=== PATIENT | female | born 1955 | race Caucasian/White ===

== ENCOUNTER 2019-03-13 12:00 | Observation (INO) | payer OTHER ==
[2019-03-13] MEDS ORDERED: SODIUM CHLORIDE 0.9% 500 ML INFUS.BAG IV ONE (12:35)
[2019-03-13] MEDS ORDERED: ONDANSETRON 4 MG/2 ML VIAL IVPUSH ONE ×2 (12:35→13:45)
[2019-03-13] MEDS ORDERED: FAMOTIDINE 20 MG/50 ML IVPB 20 MG/50 ML MG IVPB ONE ×2 (12:35→12:48)
[2019-03-13] MEDS ORDERED: methylPREDNISolone NA SUCC 125 MG/2 ML VIAL IVPB ONE (12:35)
[2019-03-13] MEDS ORDERED: ONDANSETRON 4 MG/2 ML VIAL ONE ×2 (12:47→13:48)
[2019-03-13] MEDS ORDERED: methylPREDNISolone NA SUCC 125 MG/2 ML VIAL ONE (12:47)
--- NOTE | 2019-03-13 12:53 | PDOC ---
History of Present Illness - General Chief Complaint: Allergic Reaction Stated Complaint: VOMITING/RASH Time Seen by Provider: 03/13/19 12:11 - History of Present Illness Initial Comments: Meche Martell is a 63yo woman with a PMH of HTN and COPD, s/p recent foot surgery on 03/03/19 (due to h/o fracture) and started on clindamycin postop, who presents with 3-4 days of frequent vomiting, watery diarrhea, diaphoresis, and diffuse hives. The symptoms have worsened over time, and she states that she has been unable to keep anything down including medications or water since at least Friday. She additionally endorses left-sided abdominal pain that started after the vomiting; she denies chest pain or unusual shortness of breath. She does not believe that she has had a fever during this time, though she has been sweating. She tried taking Benadryl due to the rash, but she vomiting shortly afterwards. She is afraid that she had an allergic reaction to something; the clindamycin is her only new medication, and she denies any new detergents, lotions, or other products. Past History - Past Medical History Allergies/Adverse Reactions: Allergies Allergy/AdvReac Type Severity Reaction Status Date / Time Penicillins Allergy Verified 04/18/14 10:46 Home Medications: Ambulatory Orders NK [No Known Home Medication] 04/18/14 COPD: Yes (emphysema) - Suicide/Smoking/Psychosocial Hx Smoking History: Current every day smoker Number of Cigarettes Smoked Daily: 10 Information on smoking cessation initiated: No Hx Alcohol Use: No Substance Use Type: Marijuana Review of Systems - Review of Systems Comments:: General: No fevers, no chills, no weight or appetite change, +malaise, +sweating HEENT: No changes in vision, no changes in hearing, no congestion, no sore throat CV: No chest pain, no palpitations, no LE edema Pulm: No SOB, no cough, no wheezing GI: See HPI : No frequency, no urgency, no dysuria Musc: No back pain, no joint swelling, no recent injury, +recent R foot surgery Skin: + rash, no lesions, no erythema Endo: No excessive thirst, no heat/cold intolerance Heme: No unusual bruising or bleeding, no swollen glands Neuro: No syncope, no numbness/tingling, no focal weakness Vasc: No claudication Psych: No recent change in mood, no SI or HI *Physical Exam - Vital Signs Last Vital Signs Temp Pulse Resp BP Pulse Ox 91 H 18 145/72 96 03/13/19 12:03 03/13/19 12:03 03/13/19 12:03 03/13/19 12:03 - Physical Exam Comments: General: Appears very uncomfortable, marked diaphoresis, frequent retching HEENT: PERRL, EOMI, voice normal, normal neck ROM Cards: RRR, no murmur appreciated Pulm: Comfortable on room air, trace scattered wheezing Abd: Soft, right sided and epigastric TTP, nondistended Ext: R foot in post-op walking boot w/ dressings in place. ROM intact. No LE edema Vasc: Extremities WWP Skin: Diaphoretic. Diffuse hives, especially over torso Neuro: A&Ox3, CN grossly intact, normal speech, motor/sensory grossly intact and symmetric Psych: Mood appropriate to situation ED Treatment Course - LABORATORY CBC & Chemistry Diagram: 03/13/19 13:07 03/13/19 13:07 Medical Decision Making - Medical Decision Making 03/13/19 12:52 Meche Martell is a 63yo woman with a PMH of HTN and COPD, s/p recent foot surgery on 03/03/19 (due to h/o fracture) who presents with worsening frequent vomiting, watery diarrhea, sweating, and diffuse hives. She was recently started on cindamycin postoperatively. - Ddx includes allergic reaction, most likely to clindamycin, gastroenteritis. Less likely ACS but cannot rule out given sweating and vomiting - IVF, famotidine, solu-medrol, benadryl, zofran - CBC, CMP, trop, UA, EKG 03/13/19 13:25 - EKG completed. NSR, HR 95, normal axis, slightly long QTc (487), no t-wave or ST changes - Continued vomiting and retching. Additional zofran ordered. Will monitor closely given long QTc 03/13/19 14:12 - Labs completed. Notable for detectable trop at 0.09 - Continued retching, abdominal pain - IV acetaminophen ordered - Will need to be admitted as she cannot tolerate PO with continued vomiting. CXR ordered for admission and for detectable trop 03/13/19 16:30 - Medicine team at bedside for evaluation Discussed with Dr Salinas. Becca Craven PGY2 *DC/Admit/Observation/Transfer Diagnosis at time of Disposition: Abdominal pain, vomiting, and diarrhea - Discharge Dispostion Decision to Admit order: Yes - Referrals - Patient Instructions - Post Discharge Activity
--- NOTE | 2019-03-13 13:00 | PDOC ---
Documentation entered by Annamaria Richardson SCRIBE, acting as scribe for Carmen Salinas MD. Carmen Salinas MD: This documentation has been prepared by the Dylan prince Mackenzie, SCRIBE, under my direction and personally reviewed by me in its entirety. I confirm that the documentation accurately reflects all work , treatment, procedures, and medical decision making performed by me. Attending Attestation - Resident Resident Name: Becca Craven - ED Attending Attestation I have performed the following: I have examined & evaluated the patient, The case was reviewed & discussed with the resident, I agree w/resident's findings & plan, Exceptions are as noted - HPI HPI: 63 year old female presents to the emergency department s/p foot surgery (03/03 ) on clindamycin with 5 days of rash, vomiting, excessive sweating, and diarrhea. Patient reports vomiting and diarrhea are constant (NBNB). Patient notes taking benadryl a few days ago however she was not able to keep it down. The patient denies chest pain, shortness of breath, headache and dizziness. Denies fever, constipation. Denies dysuria, frequency, urgency and hematuria. Allergies: Penicillins Past surgical history: As per resident note Social history: Tobacco use PCP: None reported - Physicial Exam PE: GENERAL: Awake, alert, and fully oriented. +Dry heaves. HEAD: No signs of trauma EYES: PERRLA, EOMI, sclera anicteric, conjunctiva clear ENT: Auricles normal inspection, hearing grossly normal, nares patent, oropharynx clear without exudates. Dry mucosa NECK: Normal ROM, supple, no lymphadenopathy, JVD, or masses LUNGS: Breath sounds equal, clear to auscultation bilaterally. No wheezes, and no crackles HEART: Regular rate and rhythm, normal S1 and S2, no murmurs, rubs or gallops ABDOMEN: Soft, diffuse mild tenderness, hyperactive bowel sounds. No guarding, no rebound. No masses EXTREMITIES: Normal range of motion, no edema. No clubbing or cyanosis. No cords, erythema, or tenderness NEUROLOGICAL: Cranial nerves II through XII grossly intact. Normal speech. Motor and sensation intact SKIN: Warm, diaphoretic, normal turgor. +Erythematous rash to face - Medical Decision Making 03/13/19 12:58 Pt presents s/p 1 week course of clinda after a foot surgery. Found to have urticarial rash, vomiting clear fluid then with dry heaves. Will give IV fluids , benadryl, steroids, and pepcid. DDx includes allergic reaction, PA (vomiting and diaphoresis), infection. Await labs to further work up.
[2019-03-13 13:29] LABS: BASO % 0.2 % (0-2.0); EOS % 0.3 % (0-4.5); HEMATOCRIT 37.6 % (32.4-45.2); HEMOGLOBIN 12.7 GM/dL (10.7-15.3); LYMPH % 21.5 % (8-40); MCH 29.9 pg (25.7-33.7); MCHC 33.9 g/dl (32.0-36.0); MEAN CELL VOLUME 88.3 fl (80-96); MEAN PLT VOLUME 7.9 fl (7.5-11.1); MONO % 6.8 % (3.8-10.2); NEUT % 71.2 % (42.8-82.8); RBC 4.26 M/mm3 (3.60-5.2); RDW 13.1 % (11.6-15.6)
[2019-03-13 13:51] LABS: ALBUMIN 3.7 g/dl (3.4-5.0); BILIRUBIN,TOTAL 0.5 mg/dL (0.2-1); BLOOD UREA NITROGEN 13.2 mg/dL (7-18); CALCIUM 9.3 mg/dL (8.5-10.1); CREATININE 0.7 mg/dL (0.55-1.3); MAGNESIUM 2.6 mg/dL (1.8-2.4); POTASSIUM 3.8 mmol/L (3.5-5.1); TOT PROT 7.3 g/dl (6.4-8.2)
[2019-03-13 13:56] LABS: PLATELET COUNT 362 K/MM3 (134-434)
[2019-03-13] MEDS ORDERED: ACETAMINOPHEN 1000 MG/100 ML VIAL (NON FORMULARY) IVPB ONE (14:12)
[2019-03-13] MEDS ORDERED: ACETAMINOPHEN INJECTION 100 ML IVPB ONE (14:34)
[2019-03-13] MEDS ORDERED: METOCLOPRAMIDE HCL INJECTION 10 MG/2 ML VIAL IVPUSH PRN (17:24)
[2019-03-13 17:25] LABS: EPI CELLS 4.3 /HPF (0-5/HPF); HYALINE CASTS 17 /lpf (0-8); URINE APPEARANCE CLOUDY; URINE BACTERIA >9000 /hpf (NEGATIVE); URINE BILIRUBIN NEGATIVE (NEGATIVE); URINE COLOR YELLOW; URINE GLUCOSE (UA) NEGATIVE (NEGATIVE); URINE KETONE TRACE (NEGATIVE); URINE LEUK ESTERASE NEGATIVE (NEGATIVE); URINE NITRITE POSITIVE (NEGATIVE); URINE PROTEIN NEGATIVE (NEGATIVE); URINE RBC 1 /hpf (0-4); URINE UROBILINOGEN 0.2 mg/dL (0.2-1.0)
[2019-03-13 17:27] LABS: URINE WBC 11.9 /hpf (0-5)
--- NOTE | 2019-03-13 17:36 | PN ---
Teaching Attending Note Name of Resident: Rosie Boone ATTENDING PHYSICIAN STATEMENT I saw and evaluated the patient. I reviewed the resident's note and discussed the case with the resident. I agree with the resident's findings and plan as documented. SUBJECTIVE: Several day history of urticarial itchy rash, intractable vomiting, diarrhea, SOB. Nausea/vomiting now resolved s/p Zofran. No hematemesis/melena/ hematochezia. No fever/chills. SOB resolved s/p Methylpred/Benadryl/Pepcid given in ED. OBJECTIVE: Low grade Temp T 99.5. Hemodynamically Stable. Last Vital Signs Temp Pulse Resp BP Pulse Ox 91 H 18 145/72 96 03/13/19 12:03 03/13/19 12:03 03/13/19 12:03 03/13/19 12:03 HEENT - Atraumatic, Normocephalic. No stridor. Heart - S1, S2, RRR Lungs - clear to auscultation - no wheeze. No stridor. Abdomen - High BMI, Soft, non-tender. Bowel Sounds normal. Skin - rash mostly resolved. Some fungal looking areas on breast intertriginous regions. Extremities - no edema, no calf tenderness. L foot surgical site dressed and in boot. Laboratory Results - last 24 hr 03/13/19 03/13/19 13:07 13:07 WBC 10.0 RBC 4.26 Hgb 12.7 Hct 37.6 MCV 88.3 MCH 29.9 MCHC 33.9 RDW 13.1 Plt Count 362 MPV 7.9 Absolute Neuts (auto) 7.2 Neutrophils % 71.2 Lymphocytes % 21.5 Monocytes % 6.8 Eosinophils % 0.3 Basophils % 0.2 Nucleated RBC % 0 Sodium 140 Potassium 3.8 Chloride 102 Carbon Dioxide 28 Anion Gap 9 BUN 13.2 Creatinine 0.7 Est GFR (CKD-EPI)AfAm 108.38 Est GFR (CKD-EPI)NonAf 93.51 Random Glucose 156 H Calcium 9.3 Magnesium 2.6 H Total Bilirubin 0.5 AST 16 ALT 25 Alkaline Phosphatase 73 Creatine Kinase 64 Troponin I 0.09 H Total Protein 7.3 Albumin 3.7 Lipase 94 Current Medications Generic Name Dose Route Start Last Admin Trade Name Freq PRN Reason Stop Dose Admin Clotrimazole 1 applic 03/13/19 22:00 Lotrimin 1% Cream - TP BID [facility] Diphenhydramine HCl 25 mg 03/13/19 17:32 Benadryl - PO Q8H PRN FOR ITCHING Enoxaparin Sodium 40 mg 03/14/19 10:00 Lovenox - SQ DAILY [facility] Famotidine/Sodium Chloride 20 mg in 50 mls @ 100 mls/hr 03/13/19 22:00 Pepcid 20 Mg Premixed Ivpb - IVPB BID [facility] Losartan Potassium 50 mg 03/14/19 10:00 Cozaar - PO DAILY [facility] Metoclopramide HCl 10 mg 03/13/19 17:24 Reglan Injection - IVPUSH Q6H PRN NAUSEA AND/OR VOMITING Prednisone 40 mg 03/14/19 10:00 Deltasone - PO 03/17/19 10:30 DAILY [facility] Home Medications Medication Instructions Recorded Azilsartan/Chlorthalidone 40/12.5mg 03/13/19 ASSESSMENT AND PLAN: 63 year old female with HTN, COPD, s/p recent Bunionectomy 03/03/19, on Clindamycin post-op, developed Abdominal discomfort, nausea, vomiting, urticarial rash, shortness of breath, worsening today prompting presentation to the ED. Symptoms much improved after receiving IV methylpred, Benadryl, Pepcid, and Zofran in ED. 1. Allergic/Adverse reaction to Clindamycin with eash/abdominal pain/nausea/ vomiting/dyspnea CXR - Scoliosis, C-spine fusion, no acute cardiopulmonary findings. Improving with steroid, H2 trent, antihistamine - continue with Prednisone 40mg for 4 days, Pepcid, Benadryl. IV Reglan for nausea/vomiting. Zofran held due to mildly prolonged QTc. Cardiopulmonary monitoring. 2. Elevated Troponin Patient reports chest discomfort on vomiting ECG - SR rate 95, no acute changes. TropI 0.09 For telemonitoring with serial troponin measurements. Cardio eval for possible demand ischemia. 3. HTN - Will resume ARB/Chlorthalidone in AM. Allergy unlikely due to ARB. Will re-challenge in AM. Monitor BP. 4. COPD - stable no evidence of exacerbation. DuoNeb PRN. 5. Intertriginous Candidiasis (Breast) - trial of Clotrimazole. DVT Px - Lovenox SQ
[2019-03-13] MEDS ORDERED: ALBUTEROL SO4 2.5/IPRATROPIUM 0.5 INH SOL 3 ML VIAL.NEB. NEB PRN (17:42)
--- NOTE | 2019-03-13 17:53 | HP ---
CHIEF COMPLAINT: Allergic reaction PCP: HISTORY OF PRESENT ILLNESS: 63 y/o F with PMHx of HTN and COPD (Not on Home O2) presents with an Allergic reaction after completing a course of Clindamycin. Patient had Right lower extremity fracture repair on 03/03 after which she completed an outpatient course of Clindamycin. 6 days ago she began to feel diaphoretic; her reaction began to worsen and about 4 days ago she became nauseous, and 3 days ago she developed a diffuse, pruritic, urticarial rash most prominent over her abdomen and anterior lower extremities. She has continued to feel nausea accompanied by retching and a decreasing ability to tolerate PO intake prompting her to visit the ED. She has additionally experienced non bloody diarrhea, multiple episodes of NBNB Vomiting, and left sided abdominal pain. Of note, her only recent medication change was the addition of Clindamycin. Denies any new creams/ointments/lotions/detergents/soaps. Denies any associated fevers, chills, chest pain, SOB, constipation, dysuria. ER course was notable for: (1) (2) (3) Recent Travel: Denies PAST MEDICAL HISTORY: As above PAST SURGICAL HISTORY: Right Foot Fx repair (on 03/03) Social History: Smoking: Denies Alcohol: Denies Drugs: Denies Family History: Allergies Penicillins Allergy (Verified 04/18/14 10:46) HOME MEDICATIONS: Home Medications Medication Instructions Recorded NK [No Known Home Medication] 04/18/14 REVIEW OF SYSTEMS As per HPI PHYSICAL EXAMINATION Vital Signs - 24 hr 03/13/19 12:03 Pulse Rate 91 H Respiratory 18 Rate Blood Pressure 145/72 O2 Sat by Pulse 96 Oximetry (%) GENERAL: A&Ox3, NAD HEAD: NCAT EYES: PERRL, EOMI EARS, NOSE, THROAT: Moist mucous membranes. NECK: Supple LUNGS: clear to auscultation bilaterally. No wheezes, no crackles HEART: Regular rate and rhythm, normal S1 and S2 without murmur ABDOMEN: Obese, Soft, nontender, not distended, + bowel sounds, no guarding MUSCULOSKELETAL: No CVA tenderness. EXTREMITIES: No peripheral edema. Right foot cast in place NEUROLOGICAL: Cranial nerves II-XII intact. SKIN: Warm, dry, Minimal urticarial rash over the abdomen and underneath breasts Laboratory Results - last 24 hr 03/13/19 03/13/1919 13:07 13:07 16:42 WBC 10.0 RBC 4.26 Hgb 12.7 Hct 37.6 MCV 88.3 MCH 29.9 MCHC 33.9 RDW 13.1 Plt Count 362 MPV 7.9 Absolute Neuts (auto) 7.2 Neutrophils % 71.2 Lymphocytes % 21.5 Monocytes % 6.8 Eosinophils % 0.3 Basophils % 0.2 Nucleated RBC % 0 Sodium 140 Potassium 3.8 Chloride 102 Carbon Dioxide 28 Anion Gap 9 BUN 13.2 Creatinine 0.7 Est GFR (CKD-EPI)AfAm 108.38 Est GFR (CKD-EPI)NonAf 93.51 Random Glucose 156 H Calcium 9.3 Magnesium 2.6 H Total Bilirubin 0.5 AST 16 ALT 25 Alkaline Phosphatase 73 Creatine Kinase 64 54 Troponin I 0.09 H 0.10 H Total Protein 7.3 Albumin 3.7 Lipase 94 Urine Color Urine Appearance Urine pH Ur Specific [place] Urine Protein Urine Glucose (UA) Urine Ketones Urine Blood Urine Nitrite Urine Bilirubin Urine Urobilinogen Ur Leukocyte Esterase Urine WBC (Auto) Urine RBC (Auto) Urine Casts (Auto) U Epithel Cells (Auto) Urine Bacteria (Auto) 03/13/19 16:48 WBC RBC Hgb Hct MCV MCH MCHC RDW Plt Count MPV Absolute Neuts (auto) Neutrophils % Lymphocytes % Monocytes % Eosinophils % Basophils % Nucleated RBC % Sodium Potassium Chloride Carbon Dioxide Anion Gap BUN Creatinine Est GFR (CKD-EPI)AfAm Est GFR (CKD-EPI)NonAf Random Glucose Calcium Magnesium Total Bilirubin AST ALT Alkaline Phosphatase Creatine Kinase Troponin I Total Protein Albumin Lipase Urine Color Yellow Urine Appearance Cloudy Urine pH 5.0 Ur Specific [place] 1.027 Urine Protein Negative Urine Glucose (UA) Negative Urine Ketones Trace H Urine Blood Negative Urine Nitrite Positive H Urine Bilirubin Negative Urine Urobilinogen 0.2 Ur Leukocyte Esterase Negative Urine WBC (Auto) 11.9 Urine RBC (Auto) 1 Urine Casts (Auto) 17 U Epithel Cells (Auto) 4.3 Urine Bacteria (Auto) >9000 Active Medications Albuterol/Ipratropium (Duoneb -) 1 amp NEB Q4H PRN PRN Reason: SHORTNESS OF BREATH Clotrimazole (Lotrimin 1% Cream -) 1 applic TP BID [facility] Diphenhydramine HCl (Benadryl -) 25 mg PO Q8H PRN PRN Reason: FOR ITCHING Enoxaparin Sodium (Lovenox -) 40 mg SQ DAILY [facility] Famotidine/Sodium Chloride (Pepcid 20 Mg Premixed Ivpb -) 20 mg in 50 mls @ 100 mls/hr IVPB BID [facility] Losartan Potassium (Cozaar -) 50 mg PO DAILY [facility] Metoclopramide HCl (Reglan Injection -) 10 mg IVPUSH Q6H PRN PRN Reason: NAUSEA AND/OR VOMITING Prednisone (Deltasone -) 40 mg PO DAILY [facility] Stop: 03/17/19 10:30 IMAGING: -CXR: Scoliosis. Clear lungs. Lower cervical spine fusion. No acute chest pathology. -EKG: NSR, VR 95, QTc 487 ASSESSMENT/PLAN: 63 y/o F with PMHx of HTN and COPD (Not on Home O2) presents with an Allergic reaction after completing a course of Clindamycin. #Allergic Reaction -Likely due to recent clindamycin use -Rash, Nausea, vomiting, abdominal pain have improved after AntiEmetics, AntiHistamine, H2 Tanya and steroids -Received 125mg Methylprednisolone; Will substitute for 40mg Prednisone daily for 4 more days -Received Ondansetron; Will give metoclopramide for Antiemesis in the setting of prolonged QTc -Continue Diphenhydramine -Will give Clotrimazole cream for Rash #Tropinemia -EKG does not reveal any TWI or ST Segment changes -Denies any chest pain but reports discomfort with emesis -Trops 0.09-->0.10, Trend -Tele monitoring -Cardio (Dr. Michelle) consulted #HTN, Controlled -Losartan #FEN -No standing fluids -Lytes WNL -Trial Clear liquid diet #PPx -DVT: Lovenox Dispo: Tele-Obs Visit type - Emergency Visit Emergency Visit: Yes ED Registration Date: 03/13/19 Care time: The patient presented to the Emergency Department on the above date and was hospitalized for further evaluation of their emergent condition. - New Patient This patient is new to me today: Yes Date on this admission: 03/14/19 - Critical Care Critical Care patient: No
[2019-03-13] MEDS ORDERED: diphenhydrAMINE HCL 25 MG CAPSULE (FP) PO ONE (20:05)
[2019-03-13] MEDS: diphenhydrAMINE HCL 25 MG CAPSULE (FP) PO PRN (20:29)
[2019-03-13] MEDS: FAMOTIDINE 20 MG/50 ML IVPB 20 MG/50 ML MG IVPB SCH (22:25)
[2019-03-13] MEDS: CLOTRIMAZOLE 1% CREAM 15 GM TUBE TP SCH (23:26)
[2019-03-14 00:53] VITALS: BMI 30.7
[2019-03-14] MEDS ORDERED: ACETAMINOPHEN 325 MG TABLET (FP) PO ONE (02:08)
[2019-03-14] MEDS ORDERED: ACETAMINOPHEN 325 MG TABLET (FP) ONE (02:22)
[2019-03-14] MEDS: diphenhydrAMINE HCL 25 MG CAPSULE (FP) PO PRN ×2 (05:39→18:01)
[2019-03-14 07:37] LABS: BASO % 0.1 % (0-2.0); EOS % 0.1 % (0-4.5); HEMATOCRIT 32.8 % (32.4-45.2); LYMPH % 27.2 % (8-40); MCHC 33.6 g/dl (32.0-36.0); MEAN CELL VOLUME 89.4 fl (80-96); MONO % 7.6 % (3.8-10.2); PLATELET COUNT 268 K/MM3 (134-434); RBC 3.67 M/mm3 (3.60-5.2); RDW 12.9 % (11.6-15.6)
[2019-03-14 07:48] LABS: ALBUMIN 3.5 g/dl (3.4-5.0); BILIRUBIN,TOTAL 0.2 mg/dL (0.2-1); BLOOD UREA NITROGEN 13.6 mg/dL (7-18); CALCIUM 8.8 mg/dL (8.5-10.1); CREATININE 0.7 mg/dL (0.55-1.3); MAGNESIUM 2.4 mg/dL (1.8-2.4); PHOSPHOROUS 3.2 mg/dL (2.5-4.9); POTASSIUM 3.7 mmol/L (3.5-5.1); TOT PROT 6.4 g/dl (6.4-8.2)
[2019-03-14] MEDS: LOSARTAN POTASSIUM 50 MG TABLET (FP) PO SCH (09:46)
[2019-03-14] MEDS: predniSONE 20 MG TABLET (UD) PO SCH (09:47)
[2019-03-14] MEDS: ENOXAPARIN NA (PORCINE) 40 MG/0.4 ML DISP.SYRIN SQ SCH (09:48)
[2019-03-14] MEDS: FAMOTIDINE 20 MG/50 ML IVPB 20 MG/50 ML MG IVPB SCH (09:48)
[2019-03-14] MEDS: CLOTRIMAZOLE 1% CREAM 15 GM TUBE TP SCH ×2 (09:48→22:09)
--- NOTE | 2019-03-14 10:36 | PN ---
Progress Note (short form) - Note Progress Note: Coverage for Dr. Luma Michelle Chief Complaint: Event noted, notes reviewed, chest pain atypical for CAD angina pectoris, nausea, vomiting, abdominal pain, and elevated Troponin I History of Present Illness: Seen and examined on telemetry. Full consult dictated - Current Medication List Current Medications Albuterol/Ipratropium (Duoneb -) 1 amp NEB Q4H PRN PRN Reason: SHORTNESS OF BREATH Clotrimazole (Lotrimin 1% Cream -) 1 applic TP BID [facility] Last Admin: 03/14/19 09:48 Dose: 1 applic Diphenhydramine HCl (Benadryl -) 25 mg PO Q8H PRN PRN Reason: FOR ITCHING Last Admin: 03/14/19 05:39 Dose: 25 mg Enoxaparin Sodium (Lovenox -) 40 mg SQ DAILY [facility] Last Admin: 03/14/19 09:48 Dose: 40 mg Famotidine/Sodium Chloride (Pepcid 20 Mg Premixed Ivpb -) 20 mg in 50 mls @ 100 mls/hr IVPB BID [facility] Last Admin: 03/14/19 09:48 Dose: 100 mls/hr Losartan Potassium (Cozaar -) 50 mg PO DAILY [facility] Last Admin: 03/14/19 09:46 Dose: Not Given Metoclopramide HCl (Reglan Injection -) 10 mg IVPUSH Q6H PRN PRN Reason: NAUSEA AND/OR VOMITING Prednisone (Deltasone -) 40 mg PO DAILY [facility] Stop: 03/17/19 10:30 Last Admin: 03/14/19 09:47 Dose: 40 mg Review of Systems Cardiovascular: As noted above Respiratory: denies Cough or Sputum Production Gastrointestinal: reported: Nausea, Vomiting and Abdominal Discomfort denies: Diarrhea or Constipation Musculoskeletal: No Symptoms Reported - Objective Vital Signs: Last Vital Signs Temp Pulse Resp BP Pulse Ox 99.6 F 91 H 20 130/62 94 L 03/14/19 05:40 03/14/19 05:40 03/14/19 05:40 03/14/19 05:40 03/13/19 21:15 Intake & Output 03/11/19 03/12/19 03/13/19 03/14/19 23:59 23:59 23:59 23:59 Intake Total 70 Balance 70 Weight 173 lb 12.8 oz Constitutional: No Distress, Calm Neck: Supple Negative JVD No Bruit Respiratory: Clear to A&P Bilaterally Cardiovascular: S1 S2 Regular Rate Rhythm Gastrointestinal: Soft Benign Normal Bowel Sounds Ext: Negative Edema Labs: CBC, BMP 03/14/19 06:20 03/14/19 06:20 Troponin, BNP 03/13/19 03/13/19 13:07 16:42 Troponin I 0.09 H 0.10 H ASSESSMENT: 1. Chest pain syndrome clinical presentation of which is atypical for CAD angina pectoris elevated Troponin I suggestive of demand ischemia with no significant EKG changes 2. Diastolic LV dysfunction with class 0 NYHA classification LV diastolic failure 3. HTN 4. Hypercholesterolemia 5. COPD, active smoker 6. Nausea, vomiting and abdominal discomfort, resolved 7. Drug reaction, skin rash PLAN: 1. Continue ARBS/Edarbyclor 2. Add B-Blockers 3. Add ASA 4. Add statins 5. Echocardiography to evaluate LV size and function, valvular function 6. Pharmacologic Lexiscan MPI study for risk stratification in view of the above presentation 7. Patient was counselled smoking cessation and abstinence Tyrese Sanchez M.D.
--- NOTE | 2019-03-14 10:58 | PN ---
Progress Note (short form) - Note Progress Note: SUBJECTIVE: Abdominal pain/nausea/vomiting/rash resolved. No hematemesis/melena/ hematochezia. No fever/chills. SOB resolved s/p Methylpred/Benadryl/Pepcid given in ED. OBJECTIVE: Tmax 99.5. Hemodynamically Stable. Last Vital Signs Temp Pulse Resp BP Pulse Ox 99.6 F 91 H 20 130/62 94 L 03/14/19 05:40 03/14/19 05:40 03/14/19 05:40 03/14/19 05:40 03/13/19 21:15 Heart - S1, S2, RRR Lungs - clear to auscultation - no wheeze. No stridor. Abdomen - High BMI, Soft, non-tender. Bowel Sounds normal. Skin - rash resolved. Some fungal looking areas on breast intertriginous regions. Extremities - no edema, no calf tenderness. L foot surgical site dressed and in boot. Laboratory Results - last 24 hr 03/13/19 03/13/19 03/13/19 13:07 13:07 16:42 WBC 10.0 RBC 4.26 Hgb 12.7 Hct 37.6 MCV 88.3 MCH 29.9 MCHC 33.9 RDW 13.1 Plt Count 362 MPV 7.9 Absolute Neuts (auto) 7.2 Neutrophils % 71.2 Lymphocytes % 21.5 Monocytes % 6.8 Eosinophils % 0.3 Basophils % 0.2 Nucleated RBC % 0 Sodium 140 Potassium 3.8 Chloride 102 Carbon Dioxide 28 Anion Gap 9 BUN 13.2 Creatinine 0.7 Est GFR (CKD-EPI)AfAm 108.38 Est GFR (CKD-EPI)NonAf 93.51 Random Glucose 156 H Calcium 9.3 Phosphorus Magnesium 2.6 H Total Bilirubin 0.5 AST 16 ALT 25 Alkaline Phosphatase 73 Creatine Kinase 64 54 Troponin I 0.09 H 0.10 H Total Protein 7.3 Albumin 3.7 Lipase 94 Urine Color Urine Appearance Urine pH Ur Specific Roy Urine Protein Urine Glucose (UA) Urine Ketones Urine Blood Urine Nitrite Urine Bilirubin Urine Urobilinogen Ur Leukocyte Esterase Urine WBC (Auto) Urine RBC (Auto) Urine Casts (Auto) U Epithel Cells (Auto) Urine Bacteria (Auto) 03/13/19 03/14/19 03/14/19 16:48 06:20 06:20 WBC 9.0 RBC 3.67 Hgb 11.0 Hct 32.8 MCV 89.4 MCH 30.0 MCHC 33.6 RDW 12.9 Plt Count 268 D MPV 8.0 Absolute Neuts (auto) 5.8 Neutrophils % 65.0 Lymphocytes % 27.2 D Monocytes % 7.6 Eosinophils % 0.1 Basophils % 0.1 Nucleated RBC % 0 Sodium 137 Potassium 3.7 Chloride 102 Carbon Dioxide 29 Anion Gap 6 L BUN 13.6 Creatinine 0.7 Est GFR (CKD-EPI)AfAm 108.38 Est GFR (CKD-EPI)NonAf 93.51 Random Glucose 93 Calcium 8.8 Phosphorus 3.2 Magnesium 2.4 Total Bilirubin 0.2 AST 15 ALT 20 Alkaline Phosphatase 57 Creatine Kinase Troponin I Total Protein 6.4 Albumin 3.5 Lipase Urine Color Yellow Urine Appearance Cloudy Urine pH 5.0 Ur Specific Roy 1.027 Urine Protein Negative Urine Glucose (UA) Negative Urine Ketones Trace H Urine Blood Negative Urine Nitrite Positive H Urine Bilirubin Negative Urine Urobilinogen 0.2 Ur Leukocyte Esterase Negative Urine WBC (Auto) 11.9 Urine RBC (Auto) 1 Urine Casts (Auto) 17 U Epithel Cells (Auto) 4.3 Urine Bacteria (Auto) >9000 Current Medications Generic Name Dose Route Start Last Admin Trade Name Freq PRN Reason Stop Dose Admin Albuterol/Ipratropium 1 amp 03/13/19 17:42 Duoneb - NEB Q4H PRN SHORTNESS OF BREATH Aspirin 81 mg 03/14/19 11:00 Ecotrin - PO DAILY TAMMY Atorvastatin Calcium 20 mg 03/14/19 22:00 Lipitor - PO HS TAMMY Clotrimazole 1 applic 03/13/19 22:00 03/14/19 09:48 Lotrimin 1% Cream - TP 1 applic BID TAMMY Administration Diphenhydramine HCl 25 mg 03/13/19 17:32 03/14/19 05:39 Benadryl - PO 25 mg Q8H PRN Administration FOR ITCHING Enoxaparin Sodium 40 mg 03/14/19 10:00 03/14/19 09:48 Lovenox - SQ 40 mg DAILY TAMMY Administration Famotidine/Sodium Chloride 20 mg in 50 mls @ 100 mls/hr 03/13/19 22:00 09:48 Pepcid 20 Mg Premixed Ivpb - IVPB 100 mls/hr BID TAMMY Administration Losartan Potassium 50 mg 03/14/19 10:00 03/14/19 09:46 Cozaar - PO Not Given DAILY TAMMY Metoclopramide HCl 10 mg 03/13/19 17:24 Reglan Injection - IVPUSH Q6H PRN NAUSEA AND/OR VOMITING Metoprolol Succinate 25 mg 03/14/19 11:15 Toprol Xl - PO DAILY TAMMY Prednisone 40 mg 03/14/19 10:00 03/14/19 09:47 Deltasone - PO 03/17/19 10:30 40 mg DAILY TAMMY Administration ASSESSMENT AND PLAN: 63 year old female with HTN, COPD, s/p recent Bunionectomy 03/03/19, on Clindamycin post-op, developed Abdominal discomfort, nausea, vomiting, urticarial rash, shortness of breath, worsening today prompting presentation to the ED. Symptoms much improved after receiving IV methylpred, Benadryl, Pepcid, and Zofran in ED. 1. Allergic/Adverse reaction to Clindamycin with rash/abdominal pain/nausea/ vomiting/dyspnea - now resolved. CXR - Scoliosis, C-spine fusion, no acute cardiopulmonary findings. Improved with steroid, H2 trent, antihistamine - will continue with Prednisone 40mg for 4 days, Pepcid, Benadryl. IV Reglan if any further nausea/vomiting. Zofran held due to mildly prolonged QTc. Cardiopulmonary monitoring. 2. Elevated Troponin Patient reports chest discomfort on vomiting - no further vomiting or chest discomfort since presentation. ECG - SR rate 95, no acute changes. TropI 0.09 --> 0.10 Echo pending. Evaluated by Cardiology - for continued serial troponin measurements and possible Stress Testing in AM. 3. HTN - Normally on Azilsartan/Chlorthalidone - started on Metopolol and Losartan by Cardiology. 4. COPD - stable no evidence of exacerbation. DuoNeb PRN. 5. Intertriginous Candidiasis (Breast) - trial of Clotrimazole. DVT Px - Lovenox SQ Visit type - Emergency Visit Emergency Visit: Yes ED Registration Date: 03/13/19 Care time: The patient presented to the Emergency Department on the above date and was hospitalized for further evaluation of their emergent condition. - New Patient This patient is new to me today: No - Critical Care Critical Care patient: No - Discharge Referral Referred to [facility] No
[2019-03-14] MEDS ORDERED: PT OWN MED DRAWER 7, Y5N ONE (11:12)
[2019-03-14] MEDS: metoPROLOL SUCCINATE 25 MG TAB.SR.24H (FP) PO SCH (11:50)
[2019-03-14] MEDS: ASPIRIN COATED 81 MG TABLET.EC PO SCH (11:50)
--- NOTE | 2019-03-14 13:07 | CONS ---
DATE OF CONSULTATION: 03/14/2019 CONSULTATION REQUESTED BY: Hospitalist service, consultation for Dr. Michelle. CHIEF COMPLAINT: Nausea, vomiting, abdominal discomfort, chest discomfort, elevated troponin I. HISTORY OF PRESENT ILLNESS: A 63-year-old female with questionable history of coronary artery disease, angina pectoris, probable diastolic left ventricular dysfunction with clinical class 0 Stanley Heart Association classification left ventricular failure, hypertensive cardiovascular disease, hypercholesterolemia, chronic obstructive pulmonary disease, active smoker, who recently had bunionectomy performed on the right foot. Subsequently she was prescribed antibiotics and she presented to [facility] with nausea, vomiting, abdominal discomfort and subsequently developed chest discomfort and in addition the patient was noted to have a generalized rash, most likely drug rash related to CLINDAMYCIN therapy administration. In the emergency room the patient was noted to have elevated troponin I level, in view of which cardiology evaluation was requested. The patient currently denies any chest discomfort. The patient reports dyspnea with mild to moderate physical exertion. The patient denies any orthopnea, paroxysmal nocturnal dyspnea, or peripheral edema. The patient denies any palpitations, dizziness, lightheadedness or syncope. The patient denies any particular tiredness. PAST MEDICAL HISTORY: Probable coronary artery disease, angina pectoris, diastolic left ventricular dysfunction with clinical class 0 Stanley Heart Association classification left ventricular failure, hypertensive cardiovascular disease, hypercholesterolemia, chronic obstructive pulmonary disease, active smoker, recent bunionectomy. SOCIAL HISTORY: A smoker. FAMILY HISTORY: Positive coronary artery disease. ALLERGIES: PENICILLIN, CLINDAMYCIN. MEDICAL THERAPY: Currently includes: DuoNeb nebulizer, Lotrimin cream, Benadryl 25 mg every 8 hours as needed, Lovenox 40 mg once daily, Pepcid 20 mg IV twice a day, losartan 50 mg once a day, although patient is on Edarbyclor therapy at home, a combination of an ARB with chlorthalidone, Reglan 10 mg every 6 hours as needed, prednisone 40 mg once daily. REVIEW OF SYSTEMS: Head and Neck: Denies headache, photophobia, blurring of vision. Respiratory: No cough or sputum production. Cardiovascular: As noted above. Gastrointestinal: Reported nausea, vomiting, abdominal discomfort. Denied any diarrhea or constipation. Musculoskeletal: Recent bunionectomy. PHYSICAL EXAMINATION: Vital Signs: Blood pressure is 130/62 mmHg. Pulse rate is 91 beats per minute. Head and Neck: Pupils equal and reacting to light and accommodation. Extraocular movements are intact. Anicteric sclerae. Negative JVD. No bruit appreciated.Chest: Clear to auscultation and percussion. Cardiovascular: S1, 2 regular. No murmurs, clicks or gallops. Abdomen: Soft, benign, normoactive bowel sounds. Extremities: Dressing noted, right foot. Negative edema. STUDIES: Electrocardiogram reveals sinus rhythm, normal limit. CBC: White cell count 9.0, hemoglobin 11.0, platelets 268. Basic metabolic profile revealed a sodium 137, potassium 3.7, BUN of 13.6, creatinine 0.7, glucose 93, troponin I 0.09, repeat 0.10. ASSESSMENT: 1. Chest pain syndrome, clinical presentation of which is atypical for coronary artery disease, angina pectoris, elevated troponin I levels suggestive of demand ischemia with no electrocardiographic changes. 2. Diastolic left ventricular dysfunction with clinical class 0 Stanley Heart Association classification left ventricular failure. 3. Hypertensive cardiovascular disease. 4. Hypercholesterolemia. 5. Chronic obstructive pulmonary disease, active smoker. 6. Nausea and vomiting, abdominal discomfort resolved. 7. Drug reaction skin rash. RECOMMENDATION: 1. Continuation of angiotensin receptor trent, continuation of Edarbyclor or equivalent therapy. 2. Addition of beta trent. 3. Addition of aspirin. 4. Addition of statin therapy. 5. Echocardiography for evaluation of left ventricular size and function, valvular function. 6. Pharmacologic Lexiscan, myocardial perfusion imaging study for purpose of risk stratification in view of the above-noted presentation. 7. The patient was counseled on smoking cessation and abstinence. Thank you for your kind referral. KWAME MENJIVAR M.D. [id number]
[2019-03-14] MEDS: ACETAMINOPHEN 325 MG TABLET (FP) PO PRN ×2 (16:00→22:10)
[2019-03-14] MEDS ORDERED: ATORVASTATIN CA 20 MG TABLET (FP) PO SCH (22:00)
[2019-03-14] MEDS: RANITIDINE HCL 150 MG TABLET (FP) PO SCH (22:08)
[2019-03-15] MEDS: diphenhydrAMINE HCL 25 MG CAPSULE (FP) PO PRN (02:29)
[2019-03-15] MEDS ORDERED: REGADENOSON 0.4 MG/5 ML PRE-FILLED SYRINGE IVPUSH ONE (08:30)
[2019-03-15] MEDS: LOSARTAN POTASSIUM 50 MG TABLET (FP) PO SCH (09:00)
[2019-03-15] MEDS: predniSONE 20 MG TABLET (UD) PO SCH (09:00)
[2019-03-15] MEDS: RANITIDINE HCL 150 MG TABLET (FP) PO SCH (09:00)
[2019-03-15] MEDS: metoPROLOL SUCCINATE 25 MG TAB.SR.24H (FP) PO SCH (09:00)
[2019-03-15] MEDS: ASPIRIN COATED 81 MG TABLET.EC PO SCH (09:00)
[2019-03-15] MEDS: ENOXAPARIN NA (PORCINE) 40 MG/0.4 ML DISP.SYRIN SQ SCH (10:00)
[2019-03-15] MEDS: CLOTRIMAZOLE 1% CREAM 15 GM TUBE TP SCH (10:00)
[2019-03-15] MEDS ORDERED: PT OWN MED DRAWER 7, Y5N ONE (10:33)
[2019-03-15 10:58] VITALS: BP 159/86; PULSE 73; TEMP 99.1
--- NOTE | 2019-03-15 12:24 | ECHO ---
Name: ELIZABETH HICKS Exam:Adult Echocardiogram Study Date: 03/15/2019 08:37 AM Age: 63 yrs Reason For Study: CHEST PAIN ELEVATED TROPONIN I Height: 63 in Weight: 173 lb BSA: 1.8 m2 MMode/2D Measurements & Calculations IVSd: 0.93 cm Ao root diam: 2.8 cm LVIDd: 4.5 cm LA dimension: 3.6 cm LVIDs: 3.4 cm LVPWd: 0.89 cm EDV(Teich): 94.6 ml LVOT diam: 2.2 cm ESV(Teich): 46.8 ml Doppler Measurements & Calculations MV E max blas: 87.4 cm/sec MR max blas: 423.3 cm/sec MV A max blas: 112.5 cm/sec MR max P.8 mmHg MV E/A: 0.78 TR max blas: 236.2 cm/sec Med Peak E' Blas: 8.7 cm/sec TR max P.5 mmHg Med E/e': 10.1 Lat Peak E' Blas: 11.4 cm/sec Lat E/e': 7.6 Procedure The study was technically adequate with some images being suboptimal in quality. Left Ventricle The left ventricular size, thickness and function are normal. Ejection Fraction = 60-65%. Grade I cooper stolic dysfunction, (abnormal relaxation pattern). Right Ventricle The right ventricle is normal in size and function. A moderator band is seen in the right ventricle. Atria Normal left and right atrial size and function. Mitral Valve There is moderate mitral annular calcification. The mitral valve is not well visualized. Calcified mi tral apparatus. There is trace mitral regurgitation. Tricuspid Valve The tricuspid valve is not well visualized. The tricuspid valve is not well visualized, but is grossl y normal. There is mild tricuspid regurgitation. There was insufficient TR detected to calculate RV systolic pr essure. Aortic Valve There is mild aortic sclerosis.;. The aortic valve opens well. The aortic valve is trileaflet. No aor tic regurgitation is present. Pulmonic Valve The pulmonic valve is not well visualized. Great Vessels The aortic root is normal size. Pericardium/Pleura There is no pericardial effusion. Interpretation Summary There is no comparison study available. There is moderate mitral annular calcification. The left ventricular size, thickness and function are normal Ejection Fraction = 60-65%. The right ventricle is normal in size and function. Grade I diastolic dysfunction, (abnormal relaxation pattern). There is trace mitral regurgitation. There is mild tricuspid regurgitation. Behzad Luciano MD 03/15/2019 12:24 PM
--- NOTE | 2019-03-15 13:37 | PN ---
Progress Note, Physician - Objective Vital Signs: Vital Signs Temperature 99.1 F 03/15/19 09:00 Pulse Rate 73 03/15/19 09:00 Respiratory Rate 20 03/15/19 09:00 Blood Pressure 159/86 03/15/19 09:00 O2 Sat by Pulse Oximetry (%) 96 03/14/19 09:28 Eyes: Yes: WNL, Conjunctiva Clear, EOM Intact HENT: Yes: WNL, Atraumatic, Normocephalic Neck: Yes: WNL, Supple, Trachea Midline Cardiovascular: Yes: WNL, Regular Rate and Rhythm Respiratory: Yes: WNL, Regular, CTA Bilaterally Gastrointestinal: Yes: WNL, Normal Bowel Sounds Genitourinary: Yes: WNL Musculoskeletal: Yes: WNL Extremities: Yes: WNL Edema: No Integumentary: Yes: WNL Neurological: Yes: WNL, Alert, Oriented ...Motor Strength: WNL Psychiatric: Yes: WNL Labs: CBC, BMP 03/14/19 06:20 03/14/19 06:20 Assessment/Plan 1. Chest pain syndrome clinical presentation of which is atypical for CAD angina pectoris elevated Troponin I suggestive of demand ischemia with no significant EKG changes 2. Diastolic LV dysfunction with class 0 NYHA classification LV diastolic failure 3. HTN 4. Hypercholesterolemia 5. COPD, active smoker 6. Nausea, vomiting and abdominal discomfort, resolved 7. Drug reaction, skin rash PLAN: 1. Continue ARBS/Edarbyclor 2. Add B-Blockers 3. Add ASA 4. Add statins 5. Echocardiography to evaluate LV size and function, valvular function 6. Pharmacologic Lexiscan MPI study for risk stratification in view of the above presentation 7. Patient was counselled smoking cessation and abstinence
--- NOTE | 2019-03-15 13:49 | PN ---
Teaching Attending Note Name of Resident: Nena Curtis ATTENDING PHYSICIAN STATEMENT I saw and evaluated the patient. I reviewed the resident's note and discussed the case with the resident. I agree with the resident's findings and plan as documented. SUBJECTIVE: Abdominal pain/nausea/vomiting/rash resolved. No hematemesis/melena/ hematochezia. No fever/chills. SOB resolved s/p Methylpred/Benadryl/Pepcid given in ED. Patient informed of her 's this AM after completing rest portion of stress test. She decided to leave A. OBJECTIVE: Tmax 100.1. Hemodynamically Stable. Last Vital Signs Temp Pulse Resp BP Pulse Ox 99.1 F 73 20 159/86 96 03/15/19 09:00 03/15/19 09:00 03/15/19 09:00 03/15/19 09:00 03/14/19 09:28 Heart - S1, S2, RRR Lungs - clear to auscultation - no wheeze. No stridor. Abdomen - High BMI, Soft, non-tender. Bowel Sounds normal. Skin - rash resolved. Some fungal looking areas on breast intertriginous regions. Extremities - no edema, no calf tenderness. L foot surgical site dressed and in boot. ASSESSMENT AND PLAN: 63 year old female with HTN, COPD, s/p recent Bunionectomy 03/03/19, on Clindamycin post-op, developed Abdominal discomfort, nausea, vomiting, urticarial rash, shortness of breath, worsening today prompting presentation to the ED. Symptoms much improved after receiving IV methylpred, Benadryl, Pepcid, and Zofran in ED. 1. Allergic/Adverse reaction to Clindamycin with rash/abdominal pain/nausea/ vomiting/dyspnea - now resolved. CXR - Scoliosis, C-spine fusion, no acute cardiopulmonary findings. Improved with steroid, H2 trent, antihistamine - will continue with Prednisone 40mg for 4 days total, Benadryl prn. 2. Elevated Troponin Patient reports chest discomfort on vomiting - no further vomiting or chest discomfort since presentation. ECG - SR rate 95, no acute changes. TropI 0.09 --> 0.10 --> Echo - normal LV systolic function, grade I diastolic dysfunction. Received first phase of stress test (rest portion) and subsequently received news of her 's passing. She decided to leave AMA prior to completing the stress test. She was counselled regarding risks and advised to return to ED if any symptoms including nausea/vomiting, chest discomfort or shortness of breath. 3. HTN - Normally on Azilsartan/Chlorthalidone - can continue. 4. COPD - stable no evidence of exacerbation. Albuterol PRN. 5. Intertriginous Candidiasis (Breast) - improving with Clotrimazole.
--- NOTE | 2019-03-15 18:12 | DS ---
Physical Exam: SUBJECTIVE: Patient seen and examined at bedside. Pt states she is feeling better and that rash is improving. The pt is no longer experiencing chest pain or nausea. OBJECTIVE: Vital Signs Period Temp Pulse Resp BP Sys/Bach Pulse Ox Last 24 Hr 97.4 F-100.1 F 70-77 18-20 140-159/60-95 95 PHYSICAL EXAM GENERAL: The patient is awake, alert, and fully oriented, in no acute distress. HEAD: Normal with no signs of trauma. EYES: PERRL, extraocular movements intact, sclera anicteric, conjunctiva clear. ENT: Ears normal, nares patent, oropharynx clear without exudates, moist mucous membranes. NECK: Trachea midline, full range of motion, supple. LUNGS: Breath sounds equal, clear to auscultation bilaterally, no wheezes, no crackles, no accessory muscle use. HEART: Regular rate and rhythm, S1, S2 without murmur, rub or gallop. ABDOMEN: Soft, nontender, nondistended, normoactive bowel sounds, no guarding, no rebound, no hepatosplenomegaly, no masses. EXTREMITIES: 2+ pulses, warm, well-perfused, no edema. NEUROLOGICAL: Cranial nerves II through XII grossly intact. Normal speech, gait not observed. PSYCH: Normal mood, normal affect. SKIN: Warm, dry, normal turgor,chest - erythema LABS HOSPITAL COURSE: Date of Admission:03/13/19 63 year old female with HTN, COPD, s/p recent Bunionectomy 03/03/19, on Clindamycin post-op, presented to the ED with abdominal discomfort, nausea, vomiting, urticarial rash, and shortness of breath. Symptoms much improved after receiving IV methylpred, Benadryl, Pepcid, and Zofran in ED. Pt had CXRAY revealing no acute cardiopulmonary findings. The pt had 3 Troponins 0.09-->0.1-- >0.1. Cardiology followed the pt and recommended Echo and Lexiscan. Echo revealed normal LV systolic function, grade I diastolic dysfunction. The Stress test could not be completed. While in the stress test, the pt received news of her 's passing and did not finish the stress test. The patient decided to leave AMA. She was counselled regarding risks and advised to return to ED if any symptoms including nausea/vomiting, chest discomfort or shortness of breath. Prednisone and clotrimazole cream was sent to the patient's pharmacy for her urticaria rash. The patient was also recommended to take aspirin, lipitor, cozaar, and toprol. These medications were sent to the pharmacy. The patient was contacted and counselled on taking these medications as prescribed. further instructions for follow up were provided in the DC plan. Date of Discharge: 03/15/19 Minutes to complete discharge: 36 Discharge Summary Reason For Visit: COMBINED ABDOMINAL PAIN, VOMITING, AND DIARRHEA Condition: Improved - Instructions Diet, Activity, Other Instructions: You presented to the hospital with a rash, trouble breathing, chest pain, and nausea. You were treated with Benadryl and steroids. Follow up with the following physicians: 1. Please follow up with your primary care physician within 1 week to manage your blood pressure, COPD, and rash. 2. Your admission nurse coordinator to reschedule your Echocardiogram and stress test. Medications: 1. Continue taking the steroid, Prednisone 40mg for 2 days. 2. Continue using the Clotrimazole cream for the fungal rash on your chest. 3.Please take Lipitor, Cozaar, Toprol XL for your heart condition. 4. Please take Zantac daily for your abdominal discomfort. Please call your admission nurse coordinator to schedule your Echocardiogram and Cardiac stress test to further manage your chest pain Please return to the ER if you have any signs or symptoms of chest pain, shortness of breath, uncontrollable fever, chills, nausea, vomiting, numbness, tingling, or weakness in any part of your body, changes in vision, or slurred speech. Please return to the ER if symptoms persist, worsen, or new symptoms arise. Disposition: AGAINST MEDICAL ADVICE - Home Medications Comprehensive Discharge Medication List: Ambulatory Orders Aspirin Coated [Ecotrin -] 81 mg PO DAILY #30 tablet.ec 03/15/19 Atorvastatin Ca [Lipitor] 20 mg PO HS #30 tablet 03/15/19 Clotrimazole [Lotrimin -] 1 applic TP BID #1 tube 03/15/19 Losartan Potassium [Cozaar -] 50 mg PO DAILY #30 tablet 03/15/19 Metoprolol Succinate [Toprol XL -] 25 mg PO DAILY #30 tab.sr.24h 03/15/19 Ranitidine [Zantac -] 150 mg PO BID #14 tablet 03/15/19 predniSONE [Deltasone -] 20 mg PO DAILY #4 tablet 03/15/19 This patient is new to me today: Yes Date on this admission: 03/15/19 Emergency Visit: No Critical Care patient: No - Discharge Referral Referred to [facility] No ATTENDING PHYSICIAN STATEMENT I saw and evaluated the patient. I reviewed the resident's note and discussed the case with the resident. I agree with the resident's findings and plan as documented. SUBJECTIVE: OBJECTIVE: ASSESSMENT AND PLAN:
== END 2019-03-15 12:55 | disposition left against medical advice (07) ==
LOC: JER 12:00 → JERBED 14:16 → INTOOBSV 14:16 → J4W 21:19
DX: T36.8X5A Adverse effect of other systemic antibiotics, initial encounter (principal); L50.0 Allergic urticaria; Y92.038 Other place in apartment as the place of occurrence of the external cause; R74.8 Abnormal levels of other serum enzymes; I11.0 Hypertensive heart disease with heart failure; I50.30 Unspecified diastolic (congestive) heart failure; E78.00 Pure hypercholesterolemia, unspecified; J44.9 Chronic obstructive pulmonary disease, unspecified; B37.2 Candidiasis of skin and nail; R07.9 Chest pain, unspecified; F17.210 Nicotine dependence, cigarettes, uncomplicated; Z98.890 Other specified postprocedural states; Z88.0 Allergy status to penicillin
CPT/HCPCS: 36415; 71045-TC-FY; 80053; 81003; 82550; 83690; 83735; 84100; 84484; 85025; 93306-TC; 99282-25; A9502; G0378; J0131